=== PATIENT | male | born 1965 | race Two or more races ===

== ENCOUNTER 2024-11-30 00:59 | Emergency (ER) | payer MEDICAID, SELFPAY ==
[2024-11-30 01:01] VITALS: BMI 18.7
[2024-11-30 01:34] VITALS: BP 140/85; PULSE 84; RESP 17; TEMP 36.8; O2SAT 99
--- NOTE | 2024-11-30 01:49 | EDNOTE_ITS ---
ED Skin Abcess FB-RME/HPI General Chief complaint: Skin/Abscess/Foreign Body Stated complaint: BLISTERS ON HANDS Time Seen by Provider: 11/30/24 01:41 Arrival date/time: 11/30/24 00:59 58M with no significant PMH (is homeless) presents to ED with several months of itchy dry hands/skin. Patient tried a course of triamcinalone w/o relief and just started a few days ago on betamethasone cream. Limitations: no limitations Related Data Previous Rx's ?Medication ?Instructions ?Recorded naproxen 500 mg tablet 500 mg PO BID PRN pain #20 t abs 01/10/19 acetaminophen 325 mg capsule 975 mg (3 x 325 mg) PO Q6 H PRN 06/30/20 pain #30 caps ibuprofen 600 mg tablet 600 mg PO Q6H #30 tabs 06/30 white petrolatum (Petroleum Jelly 1 applic topical TID PRN dry skin 11/30/24 topical) #368 grams Allergies Allergy/AdvReac Type Severity Reaction Status Date / Time No Known Allergies Allergy Verified 06/30/20 17:58 Review of Systems Review of Systems Systems Reviewed: All systems reviewed, normal except as documented Constitutional Constitutional: Reports system reviewed and no additional complaints, except as documented, Denies fever(s) and Denies headache(s) ENT Ears, Nose, Mouth, and Throat: Denies disequilibrium and Denies headache(s) Cardiovascular Cardiovascular: Reports system reviewed and no additional complaints, except as documented, Denies chest pain and Denies dyspnea Respiratory Respiratory: Reports system reviewed and no additional complaints, except as documented, Denies cough and Denies dyspnea Gastrointestinal Gastrointestinal: Reports system reviewed and no additional complaints, except as documented, Denies abdominal pain, Denies nausea and Denies vomiting Integumentary/Breasts Skin/Breast: Reports as per HPI, Reports pruritus and Reports rash Neurologic Neurologic: Reports system reviewed and no additional complaints, except as documented, Denies confusion, Denies disequilibrium and Denies headache(s) Psychiatric Psychiatric: Denies confusion Past Medical History Social History SMOKING STATUS: Current every day smoker ED Exam General Limitations: Present no limitations General appearance: Present alert and in no apparent distress Head Head exam: Present atraumatic Eye Eye exam: Present normal appearance, PERRL and EOMI ENT ENT exam: Present normal exam, normal oropharynx and mucous membranes moist Neck Neck exam: Present normal inspection, full ROM and trachea midline Chest Chest inspection: Present normal inspection and symmetric chest wall rise Respiratory Respiratory exam: Present normal lung sounds bilaterally Cardiovascular Cardiovascular exam: Present regular rate, normal rhythm and normal heart sounds Abdominal Exam Abdominal exam: Present soft and normal bowel sounds Extremities Exam Extremities exam: Present normal inspection and full ROM Back Exam Back exam: Present normal inspection and full ROM Neurological Exam Neurological exam: Present alert, oriented X3 and CN II-XII intact Psychiatric Psychiatric exam: Present normal affect and normal mood Skin Skin exam: Present warm, dry, intact and normal color Course Quality Measures none Orders Category Date Time Status Wound Care NOW Care 11/30/24 01:45 Active Vital Signs Vital signs: Vital Signs Temperature 98.2 F 11/30/24 01:34 Pulse Rate 84 11/30/24 01:34 Respiratory Rate 17 11/30/24 01:34 Blood Pressure 140/85 H 11/30/24 01:34 Pulse Oximetry (%) 99 11/30/24 01:34 Oxygen Delivery Method Room Air 11/30/24 01:34 O2 at 99% on RA and WNLs Skin / Abscess / Foreign Body MDM Narrative MDM Narrative:: 58M with no significant PMH (is homeless) presents to ED with several months of itchy dry hands/skin. Patient tried a course of triamcinalone w/o relief and just started a few days ago on betamethasone cream. Physical exam reveals skin erosions/blisters on palms, hands, and forearm. No redness or discharge. ROM intact. Patient is afebrile, calm, and alert. Skin cleaned and bandaged. Docking Pilot given including not to use steroid cream more than 2 weeks at a time. Vaseline prescribed. Patient data External records reviewed:: [facility] previous records Clinical information provided by:: patient Social determinants that could affect healthcare access:: housing Patient has the following chronic illnesses:: none How is presenting disease/condition affected by chronic disease/condition?: no chronic disease Evaluation data The following diagnostics were reviewed and interpreted by me:: other (specify) (none) Lab and/or radiology exams considered but not ordered:: not ordered Interpretation Summary: n/a Medications / Prescriptions Medications or Prescriptions considered but not ordered:: not ordered Medication administrations:: n/a Consultations Consultation(s) initiated? (list below): No Diagnosis Skin/Abscess Differential Diagnosis: abscess of skin or subcutaneous tissue, viral exanthem, dermatophytosis, urticaria, herpes zoster, allergic reaction to drug, cellulitis, eczema, insect bites, impetigo and contact dermatitis Most likely diagnosis given after review of the tests above:: eczema Admission Indicated Admission indicated?: not indicated Admission Request Was there a request for admission?: No Disposition Plan Disposition Plan: Discharge Discharge Attestation Discharge Attestation: The patient and all family members were given an opportunity to ask questions and understood the discharge instructions. Discharge instructions specifically effects, indications for sooner follow up or return to the emergency department, and the expected course of current diagnosis. Patient condition: Stable Discharge Plan Plan Patient Disposition: HOME (Self Care) Disposition Comment: Stable Prescriptions/Referrals Prescriptions/Med Rec: New white petrolatum [Petroleum Jelly] Gel 1 applic topical TID PRN (Reason: dry skin) Qty: 368 0RF No Action naproxen 500 mg tablet 500 mg PO BID PRN (Reason: pain) Qty: 20 0RF ibuprofen 600 mg tablet 600 mg PO Q6H Qty: 30 0RF acetaminophen 325 mg capsule 975 mg PO Q6H PRN (Reason: pain) Qty: 30 0RF Problem List Clinical Impression: Eczema Patient/Caregiver Discharge Instructions Education Materials: ED Atopic Dermatitis (Adult) Additional Instructions: Please follow-up with PCP within 24-48 hours and return immediately if symptoms worsen. Recommend getting referral to alcohol and drug counselor. Do not use new cream for more than 2 weeks. Keep areas covered with Vaseline. Print Language: Hungarian Stand Alone Forms: Patient Portal Info Letter SPENCER/ABRIL Supervising Physician SPENCER/ABRIL Supervising Physician: Dr. Francisco
== END 2024-11-30 01:56 | disposition home or self-care (01) ==
LOC: SERX 02:03
PROVIDERS: Emergency Provider Emergency Medicine
DX: L20.9 Atopic dermatitis, unspecified (principal); Z59.00 Homelessness unspecified
CPT/HCPCS: 99282